=== PATIENT | male | born 1980 | race Two or more races ===

== ENCOUNTER 2020-01-23 17:03 | Emergency (ER) | payer BC ==
[~2020-01-23] VITALS: Ht 175.3 cm; Wt 106.6 kg
[2020-01-23 17:10] VITALS: BP 149/105
--- NOTE | 2020-01-23 17:10 | NUR ---
ED Nurse Note: pt walked in to ED due to multiple c/o. pt has dog bite on left hand. 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 no active bleeding noted. pt also c/o left lower abdomen for 3 days with nausea. denies vomiting or diarrhea. AAO x4. respirations even and non-labored noted. skin intact except for bite wound. will wait for the further order.
[2020-01-23] MEDS ORDERED: METOPROLOL SUC100 MG ORAL (17:25)
[2020-01-23] MEDS ORDERED: Ketorolac 30mg Inj IV ONE (17:30)
[2020-01-23] MEDS ORDERED: Omnipaque-300 100ml vial INJ PRN (17:30)
--- NOTE | 2020-01-23 17:49 | Diagnostic Imaging Report ---
EXAM: XR Left Hand Complete, 3 or More Views CLINICAL HISTORY: TRAUMA TECHNIQUE: Frontal, lateral and oblique views of the left hand. COMPARISON: No relevant prior studies available. FINDINGS: Bones/joints: Unremarkable. No acute fracture. No dislocation. Soft tissues: Unremarkable. No radiopaque foreign body. IMPRESSION: Unremarkable left hand x-rays.
[2020-01-23 18:35] LABS: BILIRUBIN, URINE NEGATIVE (NEGATIVE); GLUCOSE, URINE (UA) NEGATIVE (NEGATIVE); KETONES,URINE 1+ (NEGATIVE); LEUKOCYTE ESTERASE ,URINE NEGATIVE (NEGATIVE); NITRITE,URINE NEGATIVE (NEGATIVE); PH,URINE 5 (4.5-8.0); PROTEIN,URINE 1+ (NEGATIVE); UROBILINOGEN,URINE NORMAL MG/DL (0.0-1.0)
[2020-01-23 18:38] LABS: BASOPHILS % (AUTO) 1.1 % (0.0-2.0); EOSINOPHILS % (AUTO) 1.3 % (0.0-3.0); HEMATOCRIT 49.5 % (42.0-52.0); HEMOGLOBIN 16.5 G/DL (14.2-18.0); LYMPHOCYTES % (AUTO) 18.4 % (20.0-45.0); MEAN CORPUSCULAR VOLUME 91 FL (80-99); MONOCYTES % (AUTO) 7.2 % (1.0-10.0); NEUTROPHILS % (AUTO) 72.1 % (45.0-75.0); PLATELET COUNT 259 K/UL (150-450); RED BLOOD COUNT 5.41 M/UL (4.70-6.10); RED CELL DISTRIBUTION WIDTH 13.1 % (11.6-14.8); WHITE BLOOD COUNT 8.6 K/UL (4.8-10.8)
--- NOTE | 2020-01-23 18:52 | Emergency Room Report ---
History of Present Illness General Chief Complaint: Abdominal Pain Source: Patient (Ana Terrell) Present Illness HPI 39-year-old male with history of bipolar disorder and depression currently on Lamictal, trazodone, and few other psychiatric medication which reports pain control as well as history of diverticulitis here complaining of 3days left lower abdominal pain with minimal bouts of nonbloody diarrhea. Also complains of nausea however denies vomiting at this time. Denies fever and chills, scrotal pain, cough and congestion. Reports that he also has been having a lot of protein in his urine as he is able to see white foam inside urine and last time that he had colitis presented with similar symptoms. Patient also is here for another complaint of left hand pain after dog bite earlier today. Patient is up-to-date with tetanus shot. Minor abrasion noted. Patient has full active motion of hand of no bony tenderness noted. Patient is afebrile. Has not taken medication for symptom relief. Denies tobacco smoke, marijuana use, alcohol intake. Patient also takes Adderall due to ADHD (Ana Terrell) Allergies: Coded Allergies: No Known Allergies (Unverified , 01/23/20) COVID-19 Screening Contact w/high risk pt: No Recent Travel to affected area: No Experienced COVID-19 symptoms?: No COVID-19 Testing performed SHOTBLASTER: No (Ana Terrell) Patient History Past Medical History: see triage record Past Surgical History: none Pertinent Family History: none Immunizations: UTD Reviewed Nursing Documentation: PMH: Agreed; PSxH: Agreed (Ana Terrell) Nursing Documentation-PMH Past Medical History: No History, Except For Hx Hypertension: Yes Hx Gastrointestinal Problems: Yes - diverticulitis History Of Psychiatric Problem: Yes - depression (Ana Terrell) Review of Systems All Other Systems: negative except mentioned in HPI (Ana Terrell) Physical Exam Vital Signs Date Time Temp Pulse Resp B/P (MAP) Pulse Ox O2 Delivery O2 Flow Rate FiO2 01/23/20 17:10 98.6 66 18 149/105 (120) 97 Room Air Sp02 EP Interpretation: abnormal - Elevated blood pressure General Appearance: no apparent distress, alert, GCS 15, non-toxic Head: normocephalic, atraumatic Eyes: bilateral eye normal inspection, bilateral eye PERRL ENT: hearing grossly normal, normal pharynx, no angioedema, normal voice Neck: full range of motion, supple, thyroid normal, no meningismus, supple/symm /no masses Respiratory: chest non-tender, lungs clear, normal breath sounds, no rhonchi, no respiratory distress, no retraction, no wheezing, speaking full sentences Cardiovascular #1: regular rate, rhythm, no edema, no murmur Cardiovascular #2: 2+ carotid (R), 2+ carotid (L), 2+ radial (R), 2+ radial (L) , 2+ femoral (R), 2+ femoral (L), 2+ dorsalis pedis (R), 2+ dorsalis pedis (L) Gastrointestinal: normal bowel sounds, non tender, soft, no mass, no organomegaly, no peritonitis, no bruit, non-distended, no guarding, no hernia, no pulsatile mass, no rebound Rectal: deferred Genitourinary: no CVA tenderness Musculoskeletal: back normal, no calf tenderness Neurologic: alert, motor strength/tone normal, oriented x3, sensory intact, responsive, speech normal Psychiatric: judgement/insight normal, memory normal, mood/affect normal, no suicidal/homicidal ideation Skin: abrasion - Left dorsum of hand secondary to dog bite without any bleeding or pus drainage Lymphatic: no adenopathy (Ana Terrell) Medical Decision Making PA Attestation All diagnoses and treatment plans were reviewed and discussed with my supervising physician Dr. Torres (Ana Terrell) Diagnostic Impression: Primary Impression: Diverticulitis Additional Impression: Dog bite ER Course 39-year-old male with history of bipolar disorder and depression currently on Lamictal, trazodone, and few other psychiatric medication which reports pain control as well as history of diverticulitis here complaining of 3days left lower abdominal pain with minimal bouts of nonbloody diarrhea. Also complains of nausea however denies vomiting at this time. Denies fever and chills, scrotal pain, cough and congestion. Reports that he also has been having a lot of protein in his urine as he is able to see white foam inside urine and last time that he had colitis presented with similar symptoms. Patient also is here for another complaint of left hand pain after dog bite earlier today. Patient is up-to-date with tetanus shot. Minor abrasion noted. Patient has full active motion of hand of no bony tenderness noted. Patient is afebrile. Has not taken medication for symptom relief. Denies tobacco smoke, marijuana use, alcohol intake.Patient also takes Adderall due to ADHD Ddx considered but are not limited to: appendicitis, cholecystis, gastritis, gastroenteritis, UTI, pyelonephritis, SBO, diverticulitis, influenza with GI manifestation, [place], diverticulitis, diverticulosis, and abrasion versus laceration Vital signs: are WNL, pt. is afebrile H&PE are most consistent with: Dog bite, non-complicated sigmoid diverticulitis ORDERS: abdominal CT, abdominal pain set, EKG, left hand x-ray, Zofran, Tylenol , Flagyl, Augmentin ED INTERVENTIONS: Toradol, NS bolus, Zofran, Pepcid DISCHARGE: At this time pt. is stable for d/c to home. Will provide printed patient care instructions, and any necessary prescriptions. Care plan and follow up instructions have been discussed with the patient prior to discharge. Take medication as directed, follow-up with your primary care provider for referral to petroleum geologist, if worsening symptoms return to the emergency room (Ana Terrell) ER Course Please see above note. Case discussed in detail and agree with treatment plan. (Jovany Torres MD) EKG Diagnostic Results Rate: normal Rhythm: NSR ST Segments: no acute changes Other Impression No acute ST changes (Ana Terrell) Other X-Ray Diagnostic Results Other X-Ray Diagnostic Results : Electronically Signed by: Jose Cordova documentation of Xray reviewed by me and is accurate, Jovany Torres MD (Jovany Torres MD) CT/MRI/US Diagnostic Results CT/MRI/US Diagnostic Results : Imaging Test Ordered: CT abdomen pelvis with contrast Impression FINDINGS: Lung bases: Unremarkable. No mass. No consolidation. ABDOMEN: Liver: Unremarkable. No mass. Gallbladder and bile ducts: Cholecystectomy. No ductal dilation. Pancreas: Unremarkable. No mass. No ductal dilation. Spleen: Unremarkable. No splenomegaly. Adrenals: Unremarkable. No mass. Kidneys and ureters: Unremarkable. No solid mass. No hydronephrosis. Stomach and bowel: Acute uncomplicated sigmoid diverticulitis, no abscess or perforation. No obstruction. PELVIS: Appendix: No findings to suggest acute appendicitis. Bladder: Unremarkable. No mass. Reproductive: Unremarkable as visualized. ABDOMEN and PELVIS: Intraperitoneal space: Unremarkable. No free air. No significant fluid collection. Bones/joints: No acute fracture. No dislocation. Soft tissues: Unremarkable. Vasculature: Unremarkable. No abdominal aortic aneurysm. Lymph nodes: Unremarkable. No enlarged lymph nodes. Tubes, lines and devices: Gastric band device, position appropriate. IMPRESSION: 1. Acute uncomplicated sigmoid diverticulitis, no abscess or perforation. 2. Recommend colonoscopy after acute phase of illness resolution to exclude infiltrative neoplasm. 3. Gastric band device, position appropriate. 4. Cholecystectomy. (Ana Terrell) Last Vital Signs Date Time Temp Pulse Resp B/P (MAP) Pulse Ox O2 Delivery O2 Flow Rate FiO2 01/23/20 17:20 66 18 Room Air 01/23/20 17:10 98.6 149/105 (120) 97 (Ana Terrell) Disposition: HOME, SELF-CARE Condition: Stable Scripts Acetaminophen (8 HOUR) 650 Mg Tablet.er 650 MG ORAL Q8H, #30 TAB Prov: Ana Terrell 01/23/20 Ondansetron (Zofran) 4 Mg Tablet 4 MG ORAL Q6H PRN for Nausea & Vomiting, #21 TAB Prov: Ana Terrell 01/23/20 Metronidazole* (FLAGYL*) 500 Mg Tablet 500 MG ORAL BID for 10 Days, #20 TAB Prov: Ana Terrell 01/23/20 Amoxicillin/Potassium Clav 875-125* (AUGMENTIN 875-125 TABLET*) 1 Each Tablet 1 TAB ORAL TWICE A DAY for 10 Days, #20 TAB Prov: Ana Terrell 01/23/20 Referrals: NON PHYSICIAN (PCP) Patient Instructions: Animal Bite, [id number], Diverticulitis, [id number] Additional Instructions: Take medication as directed, follow-up with your primary care doctor for referral to petroleum geologist, if worsening symptoms return to the emergency room Ana Terrell Jan 23, 2020 18:52 Jovany Torres MD Jan 24, 2020 03:35
[2020-01-23 18:55] LABS: ANION GAP 12 mmol/L (5-15); BLOOD UREA NITROGEN 13 mg/dL (7-18); CALCIUM 9.1 MG/DL (8.5-10.1); CARBON DIOXIDE 26 MMOL/L (21-32); CHLORIDE 101 MMOL/L (98-107); CREATININE 1.1 MG/DL (0.55-1.30); POTASSIUM 3.8 MMOL/L (3.5-5.1); SODIUM 139 MMOL/L (136-145)
--- NOTE | 2020-01-23 19:00 | NUR ---
HAND-OFF: Report given to Elijah Palacios RN.
--- NOTE | 2020-01-23 19:02 | NUR ---
ED Nurse Note: received report from Savannah HILL. Will resume care of patient.
[2020-01-23 19:03] VITALS: BP 137/91
[2020-01-23 19:05] LABS: ALANINE AMINOTRANSFERASE 34 U/L (12-78); ALBUMIN 4.1 G/DL (3.4-5.0); ALBUMIN/GLOBULIN RATIO 0.9 (1.0-2.7); ALKALINE PHOSPHATASE 94 U/L (46-116); ASPARTATE AMINO TRANSFERASE 26 U/L (15-37); BILIRUBIN,TOTAL 2.5 MG/DL (0.2-1.0)
[2020-01-23 19:06] LABS: BILIRUBIN,DIRECT 0.3 MG/DL (0.0-0.3)
[2020-01-23 19:10] LABS: APPEARANCE,URINE SLIGHTLY CLOUDY; COLOR,URINE YELLOW
--- NOTE | 2020-01-23 19:10 | NUR ---
ED Nurse Note: received pt consent for ct-a. pt verbalized understanding of procedure
--- NOTE | 2020-01-23 19:19 | NUR ---
ED Nurse Note: pt went for ct-a
--- NOTE | 2020-01-23 19:40 | NUR ---
ED Nurse Note: pt back from ct
--- NOTE | 2020-01-23 19:54 | Diagnostic Imaging Report ---
EXAM: CT Abdomen and Pelvis With Intravenous Contrast CLINICAL HISTORY: PAIN TECHNIQUE: Axial computed tomography images of the abdomen and pelvis with intravenous contrast. CTDI is 16 mGy and DLP is 950 mGy-cm. One or more of the following dose reduction techniques were used: automated exposure control, adjustment of the mA and/or kV according to patient size, use of iterative reconstruction technique. Coronal and sagittal reformatted images were created and reviewed. COMPARISON: No relevant prior studies available. FINDINGS: Lung bases: Unremarkable. No mass. No consolidation. ABDOMEN: Liver: Unremarkable. No mass. Gallbladder and bile ducts: Cholecystectomy. No ductal dilation. Pancreas: Unremarkable. No mass. No ductal dilation. Spleen: Unremarkable. No splenomegaly. Adrenals: Unremarkable. No mass. Kidneys and ureters: Unremarkable. No solid mass. No hydronephrosis. Stomach and bowel: Acute uncomplicated sigmoid diverticulitis, no abscess or perforation. No obstruction. PELVIS: Appendix: No findings to suggest acute appendicitis. Bladder: Unremarkable. No mass. Reproductive: Unremarkable as visualized. ABDOMEN and PELVIS: Intraperitoneal space: Unremarkable. No free air. No significant fluid collection. Bones/joints: No acute fracture. No dislocation. Soft tissues: Unremarkable. Vasculature: Unremarkable. No abdominal aortic aneurysm. Lymph nodes: Unremarkable. No enlarged lymph nodes. Tubes, lines and devices: Gastric band device, position appropriate. IMPRESSION: 1. Acute uncomplicated sigmoid diverticulitis, no abscess or perforation. 2. Recommend colonoscopy after acute phase of illness resolution to exclude infiltrative neoplasm. 3. Gastric band device, position appropriate. 4. Cholecystectomy.
[2020-01-23] MEDS ORDERED: METRONIDAZOLE500 MG ORAL (20:04)
[2020-01-23] MEDS ORDERED: ZOFRAN4 M1 ORAL (20:04)
[2020-01-23] MEDS ORDERED: 8 HOUR650 MG ORAL (20:04)
[2020-01-23] MEDS ORDERED: AUGMENTIN 875-1 EAC1 ORAL (20:04)
[2020-01-23 20:08] VITALS: BP 140/93
[2020-01-23 20:10] VITALS: BP 140/93
--- NOTE | 2020-01-23 20:10 | NUR ---
ER DISCHARGE NOTE: Patient is cleared to be discharged per ERMD, pt is aox4, on room air, with stable vital signs. pt was given dc and prescription instructions, pt was able to verbalize understanding, pt id band and iv site removed without complications. pt is able to ambulate with steady gait. pt took all belongings.
== END 2020-01-23 20:10 | disposition home or self-care (01) ==
LOC: EMR 17:24
DX: K57.32 Diverticulitis of large intestine without perforation or abscess without bleeding (principal); S61.452A Open bite of left hand, initial encounter; W54.0XXA Bitten by dog, initial encounter; Y92.9 Unspecified place or not applicable; I10 Essential (primary) hypertension; F32.9 Major depressive disorder, single episode, unspecified; Z90.49 Acquired absence of other specified parts of digestive tract
CPT/HCPCS: 36415; 73130; 74177; 80053; 80307; 81003; 82248; 83690; 84484; 85025; 85610; 85730; 96361; 96374; 96375; 99284; J1885; J2405; J7030; Q9967